=== PATIENT | female | born 1975 | race Caucasian/White ===

== ENCOUNTER → 2020-10-07 15:45 | Outpatient (BNVA) | payer OTHER, SELFPAY | PROVIDERS: Family Provider Family Medicine; PCP Family Medicine; Visit Provider Family Medicine | DX: Z11.59 Encounter for screening for other viral diseases (principal); Z20.828 Contact with and (suspected) exposure to other viral communicable diseases | CPT/HCPCS: 87635 ==

== ENCOUNTER 2025-03-27 15:11 | Emergency (ER) | payer SELFPAY ==
[2025-03-27 15:18] VITALS: BP 137/88; PULSE 92; RESP 18; TEMP 36.5; O2SAT 100
--- NOTE | 2025-03-27 15:26 | ECG_ITS ---
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 Measurements Intervals [place] Rate: 89 P: 106 MN: 169 QRS: 7 QRSD: 82 T: -1 QT: 372 QTc: 455 Interpretive Statements SINUS RHYTHM POSSIBLE LEFT ATRIAL ENLARGEMENT [-0.1mV P-WAVE IN V1/V2] LOW QRS VOLTAGE IN PRECORDIAL LEADS [QRS DEFLECTION < 1.0 mV IN CHEST LEADS] Compared to ECG 12/27/2018 01:40:12 No significant changes Electronically Signed On 03-31-2025 10:37:35 CDT by Valdo Nixon M.D. [id number]
--- NOTE | 2025-03-27 16:13 | XRR_ITS ---
PROCEDURE INFORMATION: Exam: XR Chest Exam date and time: 03/27/2025 4:15 PM Age: 49 years old Clinical indication: Pain; Angina pectoris; Additional info: Cp TECHNIQUE: Imaging protocol: Radiologic exam of the chest. Views: 1 view. COMPARISON: CR XR chest 1V [id number] 12/26/2018 11:03 PM FINDINGS: Lungs: Unremarkable. No consolidation. Pleural spaces: Unremarkable. No pleural effusion. No pneumothorax. Heart/Mediastinum: Unremarkable. No cardiomegaly. Bones/joints: Unremarkable. XR/XR chest 1V portable [id number] IMPRESSION: No acute findings.
--- NOTE | 2025-03-27 16:14 | ED_ITS ---
HPI - Weakness 2 General: Chief complaint: Weakness Stated complaint: weakness, heart palpitations Time Seen by Provider: 03/27/25 15:25 Source: patient Mode of arrival: ambulatory Limitations: no limitations History of Present Illness: This patient made her way to the emergency department today after experiencing some symptoms of what she described as acid reflux symptoms combined with what she felt like was a heart skipping or fluttering very briefly and then just that continued upper abdominal discomfort. Patient did not have any concomitant shortness of breath diaphoresis nausea vomiting etc. She states that at the same time she felt like she just was washed out and generally weak but no focal weakness. States that she still left with fullness feeling in her upper abdomen. She does relate that she has been having some left heel reflux or acid reflux symptoms for the past 2 weeks. 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 She states she is gluten sensitive and tries to be very careful with her diet. She states that she had acid reflux in the past but did not ever take any prescribed medications used herbal and dietary enzymes to help control her symptoms which has been successful in addition to her dietary manipulation. She has stuck with a relatively bland diet for the past 2 weeks and she and had that episode starting approximately 2 weeks ago. She states her stools have started to normalize as well. She has had no blood in her stools or black tarry stools. No prior abdominal surgeries she has had 4 vaginal deliveries. She takes no prescribed medications. Does not drink alcohol or smoke tobacco. No known family history of cardiovascular disease. She states that when she is doing her exercise regimen which consists of walking and other physical activity she does not get chest pain or shortness of breath. Associated symptoms: Denies chills, melena, dysuria, fever(s), headache(s), nausea, syncope or vomiting Review of Systems 2 Const: Denies: fever(s) or chills Eyes: Denies: change in vision ENMT: Denies: throat pain or odynophagia Card: Denies: syncope, pre-syncope or dyspnea on exertion Resp: Denies: dyspnea, productive cough or non-productive cough GI: Denies: nausea, vomiting, hematemesis, diarrhea, hematochezia or melena : Denies: flank pain, difficulty voiding, dysuria or urinary frequency Musc: Denies: neck pain, back pain, extremity pain or extremity swelling Skin/Breast: Denies: rash Neuro: Denies: headache(s), numbness in extremities or weakness in extremities PFSH ED 2 PFSH: Social History Smoking and tobacco/nicotine status: never used tobacco/nicotine Physical Exam 2 Narrative: EXAM NARRATIVE: The patient's alert makes good eye contact left volume voice. Const: COMMON NORMALS: no acute distress and patient oriented x3 GENERAL APPEARANCE: cooperative and comfortable NUTRITIONAL APPEARANCE: overweight HENMT: COMMON NORMALS: Normal nasal mucous membranes and turbinates present, moist oral mucous membranes and oropharynx normal FACE & SINUS: face symmetric NOSE: Normal nasal mucous membranes and turbinates present Eye: COMMON NORMALS: Equal, round and reactive pupils present, EOMs intact bilaterally and conjunctivae normal CONJUNCTIVA: Yes conjunctivae normal P UPIL: Yes Equal, round and reactive pupils present Neck/C-Spine: COMMON NORMALS: full ROM, supple, no JVD and No carotid bruits Chest: COMMONS NORMALS: normal inspection of the chest and normal palpation of entire chest wall Resp: COMMON NORMALS: normal respiratory effort, No retractions, No use of accessory muscles and clear to auscultation bilaterally AUSCULTATION: clear to auscultation bilaterally Cardio: COMMON NORMALS: no JVD, regular rate, regular rhythm, No murmurs present (Cardio) and Peripheral pulses 2+ throughout RATE: regular rate R HYTHM: regular rhythm PERIPHERAL PULSES: Peripheral pulses 2+ throughout GI: COMMON NORMALS: Normal to inspection, nondistended, normoactive bowel sounds present OTHER: Abdomen is generally unremarkable she does have some mild subjective tenderness to palpation in the epigastrium and just left of the epigastrium however no rebound guarding or peritoneal signs noted. No other focal tenderness on her abdominal examination. Back/Pelvis: COMMON NORMALS: thoracic and lumbar spine normal to inspection, no thoracic nor lumbar tenderness and thoraco-lumbar ROM normal Extremity: COMMON NORMALS: normal to inspection, no joint enlargement, no calf tenderness and no pedal edema Neuro: COMMON NORMALS: patient oriented x3, moves all extremities, no focal motor deficits and no sensory deficits noted Psych: COMMON NORMALS: mental status grossly normal Skin: COMMON NORMALS: no rashes or lesions noted, no wounds and turgor normal GENERAL SKIN EXAM: no rashes or lesions noted and turgor normal Course 2 Reevaluation(s): Reevaluation #1: The patient states she had another episode of her symptoms and was associated with some dry mouth and also feeling like she was having some numbness around her mouth. Currently she has some concomitant increase in her blood pressure and increase in her heart rate. Is not clear whether she is having an emotional overlay to some of her symptoms or not. Apparently her daughter was having a graduation event the early this evening and she has now missed that and whether that timing was coincidental or not it is not clear. Her initial biomarkers are reassuring. Will wait another set of biomarkers. Her EKGs are remaining nondynamic and unchanged. She is not hypoxic nor she tachycardic that would suggest thromboembolic disease but I think it is reasonable for us to obtain a D-dimer to ensure that that is not elevated. Time: 18:21 Reevaluation #2: Her daughter is now present and I relayed my findings to the patient as well as her daughter and the patient's . She has no evidence of biomarker elevation with this that would suggest ACS or other cardiac ischemic events at this time. She has not displayed any arrhythmias. She has maybe had an occasional APC but otherwise no sustained arrhythmias. Her D-dimer is below the cutoff and reassuring as to no evidence of thromboembolic issues. Her laboratories are reassuring of note is that her CO2 level is 19 and that may suggest some shallow breathing or hyperventilation as a manifestation of what seems like a mild anxiety or it could be because of the diaphragmatic spasm that she been relating as a symptom. She does have an abnormal urinalysis and I think we should treat that for 3 to 5 days with antibiotics to cover for likely urine your lower urinary tract infection. Again at this time I do not have any evidence that additional imaging or further studies need to be completed in the emergency department. Time: 19:26 Vital Signs: Vital signs: Vital Signs Temperature 97.7 F 03/27/25 15:18 Pulse Rate 74 03/27/25 18:50 Respiratory Rate 18 03/27/25 15:18 Blood Pressure 121/83 03/27/25 18:50 Pulse Oximetry 100 03/27/25 18:50 Oxygen Delivery Me thod Room Air 03/27/25 15:18 MDM - Weakness Medical Decision Making This patient presented as noted in the HPI. Her symptoms were somewhat ill- defined and so obviously initially we evaluated her for potential occult ACS. She had negative biomarkers x 2 with EKGs unremarkable for any dynamic changes. Her quality assurance monitor revealed no sustained arrhythmias. A D-dimer obtained was also reassuring without elevation past the cutoff that would suggest thromboembolic phenomena. She has a longstanding history of what appears to be gluten intolerance and also has had some dietary changes in the past couple of weeks because of some potential exposure to gluten or some other substance from a food truck. Her clinical exam did not suggest an intra-abdominal process and her CBC and chemistries and liver function tests were otherwise normal. Her urinalysis suggested a possible lower urinary tract infection and she did admit to dysuria later on in the ED evaluation. At this point I think she is reasonable to be discharged but she will need further follow-up. We did discuss an empiric trial of Levsin to help with some of her presumably GI symptoms that are contributing to her presentation. She voiced understanding and both she and her were appreciative of care. We also reviewed and discussed return precautions in detail. Lab Data I reviewed the patient's lab results. 03/27/25 16:25 03/27/25 16:25 Radiology Impressions Chest X-Ray 03/27/25 16:13 IMPRESSION: No acute findings. Laboratory Results WBC 6.51 10^3/uL (3.29-11.43) 03/27/25 16: RBC 4.50 10^6/uL (3.85-5.65) 03/27/25 16:25 Hgb 13.70 g/dL (11.27-16.99) 03/27/25 16:25 Hct 41.2 % (36-47) 03/27/25 16:25 MCV 91.6 fl (85-98) 03/27/25 16:25 MCH 30.4 pg (27-33) 03/27/25 16: MCHC 33.3 g/dL (30-55) 03/27/25 16:25 RDW 12.3 % (12.1-15.1) 03/27/25 16:25 Plt Count 210 10^3/cmm (157-399) 03/27/25 16: MPV 12.1 fL (7.4-10.4) H 03/27/25 16:25 Neut % (Auto) 76.3 % 03/27/25 16:25 Lymph % (Auto) 15.7 % 03/27/25 16:25 Sac % (Auto) 6.9 % 03/27/25 16:25 Eos % (Auto) 0.3 % 03/27/25 16:25 Baso % (Auto) 0.5 % 03/27/25 16:25 Neut # (Auto) 4.97 10^3/uL (1.8-7.7) 03/27/25 16:25 Lymph # (Auto) 1.0 10^3/uL (0.8-4.8) 03/27/25 16:25 Sac # (Auto) 0.5 10^3/uL (0.2-0.9) 03/27/25 16:25 Eos # (Auto) 0.0 10^3/uL (0.0-0.8) 03/27/25 16:25 Baso # (Auto) 0.0 10^3/uL (0.0-0.1) 03/27/25 16: Nucleated RBC % (auto) 0 % 03/27/25 16: Nucleated RBCs # 0.0 /100WBC 03/27/25 16: D-Dimer <= 0.27 ug/mLFEU (0-0.59) 03/27/25 16:25 Sodium 139 mmol/L (136-145) 03/27/25 16:25 Potassium 3.7 mmol/L (3.5-5.1) 03/27/25 16:25 Chloride 104 mmol/L (98-107) 03/27/25 16:25 Carbon Dioxide 19 mmol/L (22-29) L 03/27/25 16:25 Anion Gap 19.7 (5-19) H 03/27/25 16:25 BUN 16 mg/dL (6-20) 03/27/25 16:25 Creatinine 0.7 mg/dL (0.5-0.9) 03/27/25 16:25 GFR Calculation 88.2 mL/min (90-130) L 03/27/25 16:25 Glucose 108 mg/dL (65-115) 03/27/25 16:25 POC Glucose 87 mg/dL (70-110) 03/27/25 17:55 Calculated Osmolality 290 mOsm/kg (285-295) 03/27/25 16:25 Calcium 9.5 mg/dL (8.5-10.5) 03/27/25 16:25 Total Bilirubin 0.7 mg/dL (0.15-1.2) 03/27/25 16:25 AST 16 U/L (0-32) 03/27/25 16:25 ALT 14 U/L (0-33) 03/27/25 16:25 Alkaline Phosphatase 74 U/L (35-105) 03/27/25 16:25 Troponin T Baseline < 6 ng/L (0-10) 03/27/25 16: Troponin T 120 Minute 6.00 ng/L (0-10) 03/27/25 18:30 Delta Troponin T 0.75493 ABS# (0-10) 03/27/25 18:30 Total Protein 7.7 g/dL (6.6-8.7) 03/27/25 16: Albumin 4.4 g/dL (3.5-5.2) 03/27/25 16: Globulin 3.3 g/dL (1.3-4.6) 03/27/25 16:25 Lipase 20 U/L (13-60) 03/27/25 16:25 Urine Color Yellow (Yellow) 03/27/25 16:51 Urine Appearance Clear (CLEAR) 03/27/25 16:51 Urine pH 5.5 (5-7) 03/27/25 16:51 Ur Specific Adrian 1.003 (1.005-1.030) L 03/27/25 16:51 Urine Protein Negative (Negative) 03/27/25 16:51 Urine Glucose (UA) Negative (Normal) 03/27/25 16:51 Urine Ketones 1+ (Negative) H 03/27/25 16:51 Urine Blood 1+ (Negative) A 03/27/25 16:51 Urine Nitrate Negative (Negative) 03/27/25 16:51 Urine Bilirubin Negative (Negative) 03/27/25 16:51 Urine Urobilinogen 0.2 mg/dL (Negative) 03/27/25 16:51 Ur Leukocyte Esterase 2+ (Negative) A 03/27/25 16:51 Urine RBC 0-2 /hpf (0-2) 03/27/25 16:51 Urine WBC 11-20 /hpf (0-5) H 03/27/25 16:51 Ur Squamous Epith Cells 0-5 /hpf (0-5) 03/27/25 16:51 Amorphous Sediment Not Reportable 03/27/25 16:51 Urine Bacteria None seen /hpf (NONE) 03/27/25 16:51 Hyaline Casts 0-4 /lpf H 03/27/25 16:51 All radiology interpretation(s) finalized by discharge EKG Data EKG 1: I personally reviewed and interpreted this EKG as follows: Computer generated interpretation: Resting EKG reveals ventricular rate of 89 bpm with normal NH interval, QRS duration, corrected QT interval. Normal axis. No acute ST-T wave changes noted. EKG 2: I personally reviewed and interpreted this EKG as follows: Interpretation: Second EKG this visit reveals ventricular rate of 103 bpm with a NH interval of 124 ms QRS duration is normal. QT corrected is also 400 ms. Normal axis. Very minimal ST depressions noted across the precordium which is essentially unchanged from prior tracing this visit. Discharge Plan Discharge Patient Disposition: Home Clinical Impression: Dyspepsia, Lower urinary tract infection Condition: Stable Prescriptions: New hyoscyamine sulfate [Levsin] 0.125 mg tablet 0.125 mg PO Q8H PRN (Reason: dyspepsia) Qty: 20 0RF nitrofurantoin monohyd/m-cryst [Macrobid] 100 mg capsule 100 mg PO BID 3 Days Qty: 6 0RF Rx Instructions: must administer with a meal/food No Action Probiotic Complex 25 billion cell -100 mg Capsule 1 cap PO DAILY Discharge Orders: Discharge ED (Routine); Ordered 03/27/25 Ordered By: Yoel Allred Referrals: Tristian Yanez MD [Primary Care Provider, Family Practice] - 1 week Referral Note: ED follow-up Discharge Diet: Advance as tolerated and Usual diet Discharge Activity: Increase activity as tolerated Patient Instructions: Opioid Safety, Pain Management Activity Restrictions/Additional Instructions: As we discussed while you are in the emergency department there was no evidence that you had a heart related issue, blood clot related issue, or other serious cause of your current symptoms that needed further evaluation in the emergency department today. We have given you 2 prescriptions to take as we discussed. You should call your doctor for a follow-up appointment in the next week to 10 days. If it anytime your symptoms do not improve, worsen or new symptoms develop that cause you concern return to the emergency department immediately for further evaluation. Print Language: German Coding Level of Care Code ED Wedding Decorator for Chg Fwd Related Data Home Medications ?Medication ?Instructions ?Recorded ?Confirmed L.acidophilus-B.animalis-B.bifidum 1 cap PO DAILY 12/2103/27/25 25 billion cell-FOS 100 mg capsule (Probiotic Complex) Previous Rx's ?Medication ?Instructions ?Recorded hyoscyamine sulfate 0.125 mg 0.125 mg PO Q8H PRN dyspe psia #20 03/27/25 tablet (Levsin) tabs nitrofurantoin 100 mg PO BID 3 days #6 caps 03/27/25 monohydrate/macrocrystals 100 mg capsule (Macrobid) Allergies Allergy/AdvReac Type Severity Reaction Status Date / Time codeine Allergy ADV-Weaknes Verified 07/10/20 17:10 s
[2025-03-27 16:40] LABS: Basophils % 0.5 %; Eosinophils % 0.3 %; Hematocrit 41.2 % (36-47); Lymphocytes % 15.7 %; Mean Corpuscular HGB Conc 33.3 g/dL (30-55); Mean Corpuscular Hemoglobin 30.4 pg (27-33); Mean Corpuscular Volume 91.6 fl (85-98); Mean Platelet Volume 12.1 fL (7.4-10.4); Monocytes # 0.5 10^3/uL (0.2-0.9); Monocytes % 6.9 %; Neutrophils # 4.97 10^3/uL (1.8-7.7); Neutrophils % 76.3 %; Nucleated Red Blood Cells % 0 %; Platelet Count 210 10^3/cmm (157-399); Red Cell Distribution Width 12.3 % (12.1-15.1); White Blood Count 6.51 10^3/uL (3.29-11.43)
[2025-03-27] MEDS: famotidine 20 mg/2 mL INJ 40 MG IVP (16:44)
[2025-03-27 16:51] VITALS: PULSE 76; O2SAT 100
[2025-03-27 16:52] VITALS: BP 145/89
[2025-03-27 16:59] LABS: Bilirubin Urine Negative (Negative); Blood Urine 1+ (Negative); Glucose Urine UA Negative (Normal); Ketones Urine 1+ (Negative); Leukocyte Esterase Urine 2+ (Negative); Nitrate Urine Negative (Negative); Protein Urine Negative (Negative); Specific Gravity, Urine 1.003 (1.005-1.030); Urine Appearance Clear (CLEAR); Urine Color Yellow (Yellow); Urobilinogen Urine 0.2 mg/dL (Negative); pH Urine 5.5 (5-7)
[2025-03-27 17:02] LABS: Add Urine Microscopic? YES; Bacteria Urine None Seen /hpf; Hyaline Casts Urine 0-4 /lpf; RBC Urine 0-2 /hpf (0-2); Squamous Epithelial Cell Urine 0-5 /hpf (0-5)
[2025-03-27 17:14] LABS: Add Urine Culture? Yes
[2025-03-27 17:15] LABS: Troponin(5th) Baseline < 6 ng/L (0-10)
[2025-03-27 17:19] LABS: Alanine Aminotransferase 14 U/L (0-33); Albumin Level 4.4 g/dL (3.5-5.2); Alkaline Phosphatase 74 U/L (35-105); Anion Gap 19.7 (5-19); Aspartate Amino Transferase 16 U/L (0-32); Blood Urea Nitrogen 16 mg/dL (6-20); Calcium 9.5 mg/dL (8.5-10.5); Carbon Dioxide 19 mmol/L (22-29); Chloride 104 mmol/L (98-107); Creatinine Clr Calc Pharmacy 112.8818; Globulin 3.3 g/dL (1.3-4.6); Glomerular Filtration Rate 88.2 mL/min (90-130); Glucose 108 mg/dL (65-115); Lipase 20 U/L (13-60); Osmolality Calculated 290 mOsm/kg (285-295); Potassium 3.7 mmol/L (3.5-5.1); Sodium 139 mmol/L (136-145); Total Bilirubin 0.7 mg/dL (0.15-1.2); Total Protein 7.7 g/dL (6.6-8.7)
[2025-03-27 17:59] LABS: Glucose Point of Care 87 mg/dL (70-110)
--- NOTE | 2025-03-27 18:14 | ECG_ITS ---
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 Measurements Intervals [place] Rate: 103 P: 21 [place]: 124 QRS: 12 QRSD: 81 T: 5 QT: 347 QTc: 454 Interpretive Statements SINUS TACHYCARDIA MINIMAL ST DEPRESSION [0.025+ mV ST DEPRESSION] Compared to ECG 03/27/2025 15:27:06 ST (T wave) deviation now present Sinus rhythm no longer present Electronically Signed On 03-31-2025 10:34:44 CDT by Valdo Nixon M.D. [email or web address]
[2025-03-27 18:39] LABS: D Dimer <= 0.27 ug/mLFEU (0-0.59)
[2025-03-27 18:50] VITALS: BP 121/83; PULSE 74; O2SAT 100
[2025-03-27 18:54] LABS: Troponin 5 2HR Delta 0.00001 ABS# (0-10)
[2025-03-27] MEDS: hyoscyamine ODT 0.125 mg Tablet 0.25 MG PO (19:23)
[2025-03-27] MEDS: hyoscyamine ODT 0.125 mg Tablet PO (19:28)
[2025-03-27 19:29] VITALS: BP 128/98; PULSE 77; O2SAT 100
[2025-03-27 19:49] VITALS: BP 128/98; PULSE 77; O2SAT 100
== END 2025-03-27 19:52 | disposition home or self-care (01) ==
PROVIDERS: Emergency Provider Emergency Medicine; PCP Family Medicine
DX: R10.13 Epigastric pain (principal); N39.0 Urinary tract infection, site not specified
CPT/HCPCS: 36415; 36416; 71045; 80053; 81001; 82962; 83690; 84484; 85025; 85378; 87086; 93005; 96374; 99285; J3490; J9999